=== PATIENT | male | born 1955 | race Hispanic/Latino ===

== ENCOUNTER → 2020-12-18 | Outpatient (CLI) | payer OTHER | END | disposition home or self-care (01) | LOC: RAH 09:34 | PROVIDERS: ATTEND Family Medicine | DX: Z13.6 Encounter for screening for cardiovascular disorders (principal); F17.211 Nicotine dependence, cigarettes, in remission; R60.9 Edema, unspecified | CPT/HCPCS: 76775; 93925 ==

== ENCOUNTER → 2022-04-18 | Outpatient (CLI) | payer OTHER | END | disposition home or self-care (01) | LOC: RAH 11:27 | PROVIDERS: ATTEND Family Medicine | DX: S05.12XA Contusion of eyeball and orbital tissues, left eye, initial encounter (principal); M79.632 Pain in left forearm; X58.XXXA Exposure to other specified factors, initial encounter; Y93.89 Activity, other specified; Y92.89 Other specified places as the place of occurrence of the external cause; Y99.8 Other external cause status | CPT/HCPCS: 70200; 73090 ==